=== PATIENT | male | born 1975 | race Caucasian/White ===

== ENCOUNTER 2021-12-26 18:34 | Emergency (ER) | payer OTHER ==
[2021-12-26 18:51] VITALS: TEMP 98
[2021-12-26 19:28] LABS: Basophils % (A) 0 %; Eosinophils # (A) 0.1 k/uL (0-0.7); Eosinophils % (A) 2 %; HCT 44.9 % (39.0-53.0); HGB 15.5 gm/dL (13.0-17.5); Lymphocytes % (A) 33 %; MCH 29.3 pg (25.0-35.0); MCHC 34.4 g/dL (31.0-37.0); MCV 85.2 fL (80.0-100.0); Mean Platelet Volume 8.6; Monocytes # (A) 0.4 k/uL (0-1.0); Monocytes % (A) 6 %; Neutrophils # (A) 3.3 k/uL (1.3-7.7); Neutrophils % (A) 54 %; Platelet Count 219 k/uL (150-450); RBC 5.27 m/uL (4.30-5.90); RDW 13.3 % (11.5-15.5); WBC 6.1 k/uL (3.8-10.6)
--- NOTE | 2021-12-26 19:40 | XR ---
EXAMINATION TYPE: XR chest 1V portable DATE OF EXAM: 12/26/2021 COMPARISON: NONE HISTORY: Chest pain TECHNIQUE: Single view FINDINGS: Heart is normal. Lungs are clear. Diaphragm is normal. Bony thorax is intact. IMPRESSION: Normal chest
[2021-12-26 19:44] LABS: Partial Thromboplastin Time 25.7 sec (22.0-30.0); Prothrombin Time 10.6 sec (9.0-12.0)
[2021-12-26 19:48] LABS: ALT 31 U/L (4-49); AST 28 U/L (17-59); African American GFR (CKD) >90 (>60 ml/min/1.73 sqM); Albumin 4.6 g/dL (3.5-5.0); Alkaline Phosphatase 77 U/L (38-126); Anion Gap 10 mmol/L; Blood Urea Nitrogen 23 mg/dL (9-20); Carbon Dioxide 20 mmol/L (22-30); Chloride 110 mmol/L (98-107); Glucose 88 mg/dL (74-99); Lipase 123 U/L (23-300); Magnesium 2.2 mg/dL (1.6-2.3); Non-African American GFR(CKD) >90 (>60 ml/min/1.73 sqM); Potassium 4.2 mmol/L (3.5-5.1); Sodium 140 mmol/L (137-145); Total Bilirubin 0.5 mg/dL (0.2-1.3); Total Protein 7.4 g/dL (6.3-8.2)
[2021-12-26] MEDS ORDERED: BISMUTH SUBSALICYLATE 4,192 MG/240 ML BOTTLE PO STA (19:58)
[2021-12-26 20:07] LABS: Appearance,Urine Clear (Clear); Bilirubin,Urine Negative (Negative); Blood,Urine Negative (Negative); Calcium Oxalate Crystals,Urine Rare /hpf; Color,Urine Yellow; Glucose,Urine (UA) Negative (Negative); Ketones,Urine Negative (Negative); Leukocyte Esterase,Urine Moderate (Negative); Mucus,Urine Many /hpf; Nitrite,Urine Negative (Negative); PH, Urine 5.5 (5.0-8.0); Protein,Urine 1+ (Negative); RBC,Urine 5 /hpf (0-5); WBC,Urine 22 /hpf (0-5)
--- NOTE | 2021-12-26 20:08 | ED ---
Chest Pain HPI - General Chief Complaint: Chest Pain Stated Complaint: Chest pain Time Seen by Provider: 12/26/21 19:00 Source: patient Mode of arrival: ambulatory Limitations: no limitations - History of Present Illness Initial Comments: Patient complains of chest pain. Pain is in the middle of the chest. It doesn't radiate anywhere. Nothing makes it better or worse. He has no exertional chest pain or pressure or tightness. He has no shortness of breath. He has no palpitations. He has no nausea or vomiting. He has no diaphoresis. - Related Data Allergies Allergy/AdvReac Type Severity Reaction Status Date / Time amoxicillin AdvReac Rash/Hives Verified 12/26/21 18:51 Penicillins AdvReac Rash/Hives Verified 12/26/21 18:51 Review of Systems ROS Statement: Those systems with pertinent positive or pertinent negative responses have been documented in the HPI. ROS Other: All systems not noted in ROS Statement are negative. EKG Findings - EKG Comments: EKG Findings:: Twelve-lead EKG shows ventricular rate 68 bpm, normal WI interval, normal QRS complexes, no ST elevation or depression, interpreted by me as normal sinus rhythm. Past Medical History Past Medical History: GERD/Reflux, Hypertension Past Surgical History: No Surgical Hx Reported Past Psychological History: ADD/ADHD, Anxiety Smoking Status: Never smoker Past Alcohol Use History: Occasional Past Drug Use History: None Reported General Exam Limitations: no limitations General appearance: alert, in no apparent distress Head exam: Present: atraumatic, normocephalic, normal inspection Eye exam: Present: normal appearance, PERRL, EOMI. Absent: scleral icterus, conjunctival injection, periorbital swelling ENT exam: Present: normal exam, mucous membranes moist Neck exam: Present: normal inspection. Absent: tenderness, meningismus, lymphadenopathy Respiratory exam: Present: normal lung sounds bilaterally. Absent: respiratory distress, wheezes, rales, rhonchi, stridor Cardiovascular Exam: Present: regular rate, normal rhythm, normal heart sounds. Absent: systolic murmur, diastolic murmur, rubs, gallop, clicks GI/Abdominal exam: Present: soft, normal bowel sounds. Absent: distended, tenderness, guarding, rebound, rigid Extremities exam: Present: normal inspection, full ROM, normal capillary refill. Absent: tenderness, pedal edema, joint swelling, calf tenderness Back exam: Present: normal inspection Neurological exam: Present: alert, oriented X3, CN II-XII intact Psychiatric exam: Present: normal affect, normal mood Skin exam: Present: warm, dry, intact, normal color. Absent: rash Course Vital Signs 12/26/21 12/26/21 18:43 19:34 Temperature 98.0 F Pulse Rate 78 70 Respiratory 18 13 Rate Blood Pressure 151/101 159/109 O2 Sat by Pulse 98 94 L Oximetry Chest Pain [facility] Patient presents with chest pain. Exam is unremarkable. Workup is completely normal. He had a stress test done within the last was negative. He has no exertional symptoms. He tolerates oral intake. Vital signs are within acceptable limits. He is stable for discharge. Disposition Clinical Impression: Chest pain Disposition: HOME SELF-CARE Condition: Good Instructions (If sedation given, give patient instructions): Chest Pain (ED) Is patient prescribed a controlled substance at d/c from ED?: No Referrals: Naif Barba III, MD [Primary Care Provider] - 1-2 days Yandel Rosenbaum MD [STAFF PHYSICIAN] - 1-2 days
[2021-12-26 20:21] VITALS: BP 151/105; PULSE 77; RESP 16
== END 2021-12-26 20:21 | disposition home or self-care (01) ==
LOC: EC 18:34
DX: R07.9 Chest pain, unspecified (principal); I10 Essential (primary) hypertension; K21.9 Gastro-esophageal reflux disease without esophagitis; F41.9 Anxiety disorder, unspecified
CPT/HCPCS: 36415; 71045; 80053; 81001; 83690; 83735; 83880; 84484; 85025; 85610; 85730; 93005; 99285

== ENCOUNTER → 2022-01-12 | Day surgery (SDC) | payer OTHER ==
[2022-01-10 16:05] VITALS: BMI 34.4
[~2022-01-12] MED LIST: KETAMINE 10 MG/ML 20 ML VIAL ONE; LIDOCAINE 1% (10MG/ML) FOR IV START INTRADERMA PRN; LIDOCAINE 2% INJ 20 MG/ML (2 ML VIAL) ONE; MIDAZOLAM 2 MG/2 ML VIAL ONE; PROPOFOL 10 MG/ML 20 ML VIAL IV ONE; fentaNYL (PF) 50 MCG/ML 2 ML AMP ONE
[2022-01-12 07:52] VITALS: RESP 16; TEMP 98.6
[2022-01-12] MEDS: LACTATED RINGERS 1,000 ML IV SCH ×2 (08:04→08:54)
--- NOTE | 2022-01-12 09:18 | P.PCN ---
Date of Procedure: 01/12/22 Procedure(s) Performed: Brief history: Patient is a pleasant 46-year-old white male scheduled for an elective upper endoscopy as well as colonoscopy as a part of evaluation of epigastric pain, abdominal bloating and chronic diarrhea for the last several years duration. He does have long-standing history of GERD and has been on Protonix 40 mg twice daily. Procedure performed: Esophagogastroduodenoscopy with biopsy Colonoscopy with biopsy and snare polypectomy Preoperative diagnosis: Long-standing history of GERD Change in bowel habits and chronic diarrhea Anesthesia: MAC Procedure: After informed consent was obtained from the patient was brought into the endoscopy unit and IV sedation was administered by anesthesia under continuous monitoring. Initially upper endoscopy was done. The Olympus GF 160 video endoscope was inserted inserted into the mouth and esophagus intubated without any difficulty and was gradually advanced into the stomach and duodenum and carefully examined. The bulb and second part of the duodenum appeared normal. Biopsies were done from the duodenum to rule out celiac disease. The scope was then withdrawn into the stomach adequately insufflated with air and upon careful examination the antrum had mild gastritis and biopsies were done from this area. The body, cardia and fundus appeared normal. The scope was then withdrawn into the esophagus. The GE junction was located at 40 cm to the incisors. It appeared regular with no erythema erosions or ulcerations. Rest of the esophagus appeared normal. Patient tolerated the procedure well. At this time the patient continued to remain sedation. Initial digital rectal examination was normal. Olympus CF 160 video colonoscope was then inserted into the rectum and gradually advanced to the cecum without any difficulty. Careful examination was performed as the scope was gradually being withdrawn. The prep was excellent. The cecum, appeared normal. Ascending colon there was a 1.5 cm broad-based polyp that was removed by snare polypectomy. Rest of the ascending colon, transverse colon, descending colon, sigmoid colon and rectum appeared normal. Random biopsies were done from ascending and descending colon to rule out colonoscopy/collagenous colitis. Retroflexion was performed in the rectum and no lesions were noted. Patient tolerated the procedure well. Impression: 1. Upper endoscopy revealed mild antral gastritis but no evidence of esophagitis or peptic ulcer disease 2. Colonoscopy revealed a 1.5 cm broad-based ascending colon polyp status post polypectomy. Recommendations: Findings of this examination were discussed with the patient as well as his family. He was advised to follow with the biopsy results. If the biopsy reveals adenoma he can have a repeat colonoscopy in 3 years. He will continue with Protonix 40 mg twice daily and follow antireflux measures.
[2022-01-12 09:56] VITALS: BP 114/74; PULSE 82
== END ==
LOC: ORWHC2ENDO 07:34
PROVIDERS: ATTEND Internal Medicine Gastroenterology
DX: K29.50 Unspecified chronic gastritis without bleeding (principal); K63.5 Polyp of colon; K52.9 Noninfective gastroenteritis and colitis, unspecified; K21.9 Gastro-esophageal reflux disease without esophagitis; Z79.899 Other long term (current) drug therapy; I10 Essential (primary) hypertension; F90.9 Attention-deficit hyperactivity disorder, unspecified type; F41.9 Anxiety disorder, unspecified; Z87.11 Personal history of peptic ulcer disease; Z88.0 Allergy status to penicillin
CPT/HCPCS: 88305; 45380; 45385; 43239; J2250; J3010; J2704; J2001

== ENCOUNTER → 2022-01-19 | Outpatient (CLI) | payer OTHER ==
--- NOTE | 2022-01-22 09:46 | US ---
EXAMINATION TYPE: US abdomen comp/pelvis limited DATE OF EXAM: 01/19/2022 COMPARISON: NONE CLINICAL HISTORY: R10.31 RLQP N20.0 CALCULUS OF KIDNEY. Hx kidney stones, fatty liver. Right lower qu adrant pain. EXAM MEASUREMENTS: Liver Length: 18.0 cm Gallbladder Wall: 0.4 cm CBD: 0.5 cm Spleen: 13.7 cm Right Kidney: 12.6 x 6.6 x 6.7 cm Left Kidney: 11.9 x 5.7 x 7.2 cm Post Void Residual: 31.93 mL Pancreas: Limited due to gas. Liver: Appears coarse and enlarged with increased echogenicity. Gallbladder: Wall appears thickened: 0.4 cm. CBD: Appears wnl Spleen: Appears slightly enlarged versus upper limits. Right Kidney: Appearance of mild hydronephrosis medially, scanned post-void as well. -2 hyperechoic foci seen. Larger focus measures: 0.7 x 0.6 x 0.5 cm. Right kidney measures upper limits versus minimally enlarged. Left Kidney: Appearance of minimal hydronephrosis medially, scanned post-void as well. -2 hyperechoic foci seen. Larger focus measures: 0.6 x 0.6 x 0.4 cm. Upper IVC: Appears wnl Abd Aorta: Proximal aorta appears ectatic. Limited, distal segment and iliacs were obscured. Bladder: Appears anechoic. Bilateral Jets Seen Yes Normal Post Void Residual (normal less than 50ml) Yes IMPRESSION: 1. Left renal calculi without hydronephrosis. 2. Mild right hydronephrosis
== END | disposition home or self-care (01) ==
LOC: RADUSWWP 08:18
PROVIDERS: ATTEND Family Medicine
DX: N13.2 Hydronephrosis with renal and ureteral calculous obstruction (principal)
CPT/HCPCS: 76700; 76857

== ENCOUNTER → 2022-07-18 | Outpatient (CLI) | payer BC ==
[2022-07-18 14:31] LABS: HCT 45.7 % (39.6-50.0); MCH 28.1 pg (27.0-32.0); MCHC 32.8 g/dL (32.0-37.0); MCV 85.7 fL (80.0-97.0); NRBC Per 100 WBC 0 /100 WBCS (0.0-0.0); Platelet Count 216 X 10*3/uL (140-440); RBC 5.33 X 10*6/uL (4.40-5.60); WBC 5.93 X 10*3/uL (4.50-10.00)
[2022-07-18 14:56] LABS: ALT 36 U/L (10-49); AST 18 U/L (14-35); African American GFR (CKD) 103.6 (60.0-200.0); BUN/Creat Ratio 16.14 Ratio (12.00-20.00); Blood Urea Nitrogen 16.3 mg/dL (9.0-27.0); Calcium 9.4 mg/dL (8.7-10.3); Chloride 103 mmol/L (96-109); Chol/HDL Ratio 4.99 Ratio; Glucose 107 mg/dL (70-110); LDL Cholesterol,Calculated 125.3 mg/dL (0.0-131.0); Non-African American GFR(CKD) 89.4 (60.0-200.0); Potassium 4.5 mmol/L (3.5-5.5); Sodium 142 mmol/L (135-145)
== END | disposition home or self-care (01) ==
LOC: LABWHC1 09:32
PROVIDERS: ATTEND Internal Medicine Cardiovascular Disease
DX: E78.2 Mixed hyperlipidemia (principal)
CPT/HCPCS: 36415; 80048; 80061; 84443; 84450; 84460; 85027

== ENCOUNTER 2024-12-06 10:36 | Emergency (ER) | payer BC ==
[2024-12-06 11:05] VITALS: TEMP 98.4
--- NOTE | 2024-12-06 11:46 | ED ---
Nausea/Vomiting/Diarrhea HPI - General Chief complaint: Nausea/Vomiting/Diarrhea Stated complaint: N/V/D Time Seen by Provider: 12/06/24 10:50 Source: patient, RN notes reviewed Mode of arrival: ambulatory Limitations: no limitations - History of Present Illness Initial comments: This is a 49-year-old male presenting to emergency department with complaints of nausea, vomiting, diarrhea, and abdominal pain described as a burning sensation since Saturday. Patient states that he felt well yesterday however today pain is worsened located to the left lower part of his abdomen that radiates up into the left upper quadrant of his abdomen. He denies chest pain, difficulty breathing, heart palpitations, dizziness, lightheadedness, hematochezia, melena, urinary changes. Patient states that he believes he may have had bad [place] food on that prompted his symptoms. Denies previous surgical abdominal history however states that he has a bad gallbladder and this needs to be removed. Denies cardiac history or history of diverticulitis. - Related Data Home Medications Medication Instructions Recorded Confirmed Pantoprazole [Protonix] 40 mg PO DAILY 01/10/22 01/12/22 amLODIPine BESYLATE/BENAZEPRIL 1 cap PO DAILY 01/10/22 01/12/22 [amLODIPine BESYLATE/BENAZEPRIL 5-20 mg] Previous Rx's Medication Instructions Recorded Ketorolac [Toradol] 10 mg PO Q8HR #15 tab 12/06/24 Ondansetron Odt [Zofran Odt] 4 mg PO Q8HR PRN #10 tab 12/06/24 Allergies Allergy/AdvReac Type Severity Reaction Status Date / Time amoxicillin AdvReac Rash/Hives Verified 12/06/24 11:05 Penicillins AdvReac Rash/Hives Verified 12/06/24 11:05 Review of Systems ROS Statement: Those systems with pertinent positive or pertinent negative responses have been documented in the HPI. ROS Other: All systems not noted in ROS Statement are negative. Past Medical History Past Medical History: GERD/Reflux, Hypertension Additional Past Medical History / Comment(s): Symptoms of diarrhea, stomach issues. States may have stomach ulcers. History of Any Multi-Drug Resistant Organisms: None Reported Past Surgical History: No Surgical Hx Reported Additional Past Surgical History / Comment(s): [place] teeth, EGD Past Anesthesia/Blood Transfusion Reactions: No Reported Reaction Past Psychological History: ADD/ADHD, Anxiety Smoking Status: Former smoker Past Alcohol Use History: Occasional Past Drug Use History: None Reported - Past Family History Mother Family Medical History: No Reported History General Exam - General Exam Comments Initial Comments: Visual Physical Exam Vital signs reviewed General: Well-appearing, nontoxic, no acute distress. Head: Normocephalic, atraumatic Eyes: PERRLA, EOMI ENT: Airway patent Chest: Nonlabored breathing Skin: No visual rash, normal skin tone Neuro: Alert and oriented 3 Musculoskeletal: No gross abnormalities Limitations: no limitations General appearance: alert, in no apparent distress Neck exam: Present: normal inspection. Absent: tenderness, meningismus, lymphadenopathy Respiratory exam: Present: normal lung sounds bilaterally. Absent: respiratory distress, wheezes, rales, rhonchi, stridor Cardiovascular Exam: Present: regular rate, normal rhythm, normal heart sounds. Absent: systolic murmur, diastolic murmur, rubs, gallop, clicks GI/Abdominal exam: Present: soft, tenderness (diffuse), normal bowel sounds. Absent: distended, guarding, rebound, rigid Extremities exam: Present: normal inspection, full ROM, normal capillary refill. Absent: tenderness, pedal edema, joint swelling, calf tenderness Back exam: Present: normal inspection. Absent: CVA tenderness (R), CVA tenderness (L) Skin exam: Present: warm, dry, intact, normal color. Absent: rash Course Vital Signs 12/06/24 12/06/24 12/06/24 11:03 13:25 14:48 Temperature 98.4 F Pulse Rate 64 69 59 L Respiratory 20 18 18 Rate Blood Pressure 103/68 118/75 98/64 O2 Sat by Pulse 99 98 99 Oximetry Medical Decision Making - Medical Decision Making Was pt. sent in by a medical professional or institution (, PA, VE TEACHER, urgent care, hospital, or skilled nursing...) When possible be specific @ -No Did you speak to anyone other than the patient for history (EMS, parent, family, police, friend...)? What history was obtained from this source @ -No Did you review nursing and triage notes (agree or disagree)? Why? @ -I reviewed and agree with nursing and triage notes Were old charts reviewed (outside hosp., previous admission, EMS record, old EKG, old radiological studies, urgent care reports/EKG's, skilled nursing records)? Report findings @ -No old charts were reviewed Differential Diagnosis (chest pain, altered mental status, abdominal pain women, abdominal pain men, vaginal bleeding, weakness, fever, dyspnea, syncope, hea dache, dizziness, GI bleed, back pain, seizure, CVA, palpatations, mental health, musculoskeletal)? @ -Differential Abdominal Pain Men: Appendicitis, cholecystitis, diverticulosis, ischemic bowel, pancreatitis, hepatitis, UTI, gastroenteritis, AAA, incarcerated hernia, bowel obstruction, constipation, inflammatory bowel, hepatitis, peptic ulcer disease, splenic infarction, perforated viscus, testicular torsion, this is not meant to be an all-inclusive list EKG interpreted by me (3pts min.). @ -Completed at 1204 sinus bradycardia with a ventricular rate of 59, MI interval 209, QRS 93, QT 414, QTc 414. X-rays interpreted by me (1pt min.). @ -None done CT interpreted by me (1pt min.). @ -CT of the abdomen and pelvis with IV contrast reveals a right hydronephrosis secondary to a 9 mm calculus in the proximal right ureter with no left lower process U/S interpreted by me (1pt. min.). @ -None done What testing was considered but not performed or refused? (CT, X-rays, U/S, labs)? Why? @ -None What meds were considered but not given or refused? Why? @ -None Did you discuss the management of the patient with other professionals (professionals i.e. , PA, VE TEACHER, lab, RT, psych nurse, secondary social studies teacher, circuit court clerk, teacher, collections officer, manager case management)? Give summary @ -No Was smoking cessation discussed for >3mins.? @ -No Was critical care preformed (if so, how long)? @ -No Were there social determinants of health that impacted care today? How? (Homelessness, low income, unemployed, alcoholism, drug addiction, transportation, low edu. Level, literacy, decrease access to med. care, halfway, rehab)? @ -No Was there de-escalation of care discussed even if they declined (Discuss DNR or withdrawal of care, Hospice)? DNR status @ -No What co-morbidities impacted this encounter? (DM, HTN, Smoking, COPD, CAD, Cancer, CVA, ARF, Chemo, Hep., AIDS, mental health diagnosis, sleep apnea, morbid obesity)? @ -None Was patient admitted / discharged? Hospital course, mention meds given and route, prescriptions, significant lab abnormalities, going to OR and other pertinent info. @ -Discharge. 49-year-old male presents emergency room with complaints of abdominal pain and burning. Patient is noted to have mildly reproducible pain on examination of the abdomen with equal bowel sounds heard through all quadrants. Patient provided with IV fluids and Zofran was offered morphine however was declined. Labs reveal reactive leukocytosis 11.3 likely secondary to emesis and diarrhea. CMP is unremarkable including troponin. Urinalysis reveals no signs of infection. CT imaging of the abdomen pelvis with IV contrast reveals a hydronephrosis secondary to a 9 mm calculus in the proximal right ureter with no evidence of a left lower process of the abdomen. Reevaluat ion after medication patient states that he is feeling well. He is provided with dose of Protonix and Toradol with symptoms likely secondary to gastroenteritis this patient is not having pain of the right lower quadrant. Patient states that he has a known history of a right-sided kidney stone and follows with a urologist out of [facility]. Patient's pain has been well-controlled and he is stable for discharge. Return parameters have been discussed. Case discussed with my attending Dr. Alvarez Undiagnosed new problem with uncertain prognosis? @ -No Drug Therapy requiring intensive monitoring for toxicity (Heparin, Nitro, Insulin, Cardizem)? @ -No Were any procedures done? @ -No Diagnosis/symptom? @ -Gastroenteritis, acute nausea and vomiting, acute diarrhea, right nephrolithiasis Acute, or Chronic, or Acute on Chronic? @ -Acute Uncomplicated (without systemic symptoms) or Complicated (systemic symptoms)? @ -Uncomplicated Side effects of treatment? @ -No Exacerbation, Progression, or Severe Exacerbation? @ -No Poses a threat to life or bodily function? How? (Chest pain, [place], [place], pneumonia, PE, COPD, DKA, ARF, appy, cholecystitis, CVA, Diverticulitis, Homicidal, Suicidal, threat to staff... and all critical care pts) @ -No - Lab Data Result diagrams: 12/06/24 12:15 12/06/24 12:15 Lab Results 06/15/25 06/15/25 06/15/25 Range/Units 12:15 12:15 12:15 WBC 11.33 H (4.50-10.00) 10*3/uL RBC 5.71 H (4.40-5.60) 10*6/uL Hgb 16.2 (13.0-17.0) g/dL Hct 46.5 (39.6-50.0) % MCV 81.4 (80.0-97.0) fL MCH 28.4 (27.0-32.0) pg MCHC 34.8 (32.0-37.0) g/dL Plt Count 239 (140-440) 10*3/uL MPV 11.2 (9.5-12.2) fL Immature Gran % (Auto) 0.4 % Neutrophils % 78.2 % Lymphocytes % 12.4 % Monocytes % 5.2 % Eosinophils % 3.6 % Basophils % 0.2 % Immature Gran # 0.05 H (0.00-0.04) 10*3/uL Neutrophils # 8.86 H (1.80-7.70) 10*3/uL Lymphocytes # 1.40 (0.90-5.00) 10*3/uL Monocytes # 0.59 (0.20-1.00) 10*3/uL Eosinophils # 0.41 H (0.04-0.35) 10*3/uL Basophils # 0.02 (0.00-0.10) 10*3/uL Sodium 137 (137-145) mmol/L Potassium 3.6 (3.5-5.1) mmol/L Chloride 101 (98-107) mmol/L Carbon Dioxide 25 (22-30) mmol/L Anion Gap 11 mmol/L BUN 23 H (9-20) mg/dL Creatinine 1.02 (0.66-1.25) mg/dL Est GFR (CKD-EPI)AfAm >90 (>60 ml/min/1.73 sqM) Est GFR (CKD-EPI)NonAf 87 (>60 ml/min/1.73 sqM) Glucose 107 H (74-99) mg/dL Plasma Lactic Acid José Miguel (0.7-2.0) mmol/L Calcium 9.6 (8.4-10.2) mg/dL Total Bilirubin 0.7 (0.2-1.3) mg/dL AST 19 (17-59) U/L ALT 31 (4-49) U/L Alkaline Phosphatase 97 (38-126) U/L Troponin I <0.012 (0.000-0.034) ng/mL Total Protein 6.4 (6.3-8.2) g/dL Albumin 4.0 (3.5-5.0) g/dL Lipase 46 (23-300) U/L Urine Color Urine Appearance (Clear) Urine pH (5.0-8.0) Ur Specific Wever (1.001-1.035) Urine Protein (Negative) Urine Glucose (UA) (Negative) Urine Ketones (Negative) Urine Blood (Negative) Urine Nitrite (Negative) Urine Bilirubin (Negative) Urine Urobilinogen (<2.0) mg/dL Ur Leukocyte Esterase (Negative) Urine RBC (0-5) /hpf Urine WBC (0-5) /hpf Urine Mucus (None) /hpf 12/06/24 12/06/24 Range/Units 12:15 13:31 WBC (4.50-10.00) 10*3/uL RBC (4.40-5.60) 10*6/uL Hgb (13.0-17.0) g/dL Hct (39.6-50.0) % MCV (80.0-97.0) fL MCH (27.0-32.0) pg MCHC (32.0-37.0) g/dL Plt Count (140-440) 10*3/uL MPV (9.5-12.2) fL Immature Gran % (Auto) % Neutrophils % % Lymphocytes % % Monocytes % % Eosinophils % % Basophils % % Immature Gran # (0.00-0.04) 10*3/uL Neutrophils # (1.80-7.70) 10*3/uL Lymphocytes # (0.90-5.00) 10*3/uL Monocytes # (0.20-1.00) 10*3/uL Eosinophils # (0.04-0.35) 10*3/uL Basophils # (0.00-0.10) 10*3/uL Sodium (137-145) mmol/L Potassium (3.5-5.1) mmol/L Chloride (98-107) mmol/L Carbon Dioxide (22-30) mmol/L Anion Gap mmol/L BUN (9-20) mg/dL Creatinine (0.66-1.25) mg/dL Est GFR (CKD-EPI)AfAm (>60 ml/min/1.73 sqM) Est GFR (CKD-EPI)NonAf (>60 ml/min/1.73 sqM) Glucose (74-99) mg/dL Plasma Lactic Acid José Miguel 0.9 (0.7-2.0) mmol/L Calcium (8.4-10.2) mg/dL Total Bilirubin (0.2-1.3) mg/dL AST (17-59) U/L ALT (4-49) U/L Alkaline Phosphatase (38-126) U/L Troponin I (0.000-0.034) ng/mL Total Protein (6.3-8.2) g/dL Albumin (3.5-5.0) g/dL Lipase (23-300) U/L Urine Color Yellow Urine Appearance Clear (Clear) Urine pH 6.5 (5.0-8.0) Ur Specific Wever >1.050 H (1.001-1.035) Urine Protein Trace H (Negative) Urine Glucose (UA) Negative (Negative) Urine Ketones Trace H (Negative) Urine Blood Negative (Negative) Urine Nitrite Negative (Negative) Urine Bilirubin Negative (Negative) Urine Urobilinogen <2.0 (<2.0) mg/dL Ur Leukocyte Esterase Small H (Negative) Urine RBC 2 (0-5) /hpf Urine WBC 6 H (0-5) /hpf Urine Mucus Occasional H (None) /hpf Disposition Clinical Impression: Gastroenteritis, Nephrolithiasis Disposition: HOME SELF-CARE Condition: Good Instructions (If sedation given, give patient instructions): Gastroenteritis (ED) Additional Instructions: Please return to the Emergency Department if symptoms worsen or any other concerns. Please follow-up with urology for further evaluation of 9 mm sided kidney stone Prescriptions: Ketorolac [Toradol] 10 mg PO Q8HR #15 tab Ondansetron Odt [Zofran Odt] 4 mg PO Q8HR PRN #10 tab PRN Reason: Nausea Is patient prescribed a controlled substance at d/c from ED?: No Referrals: Lefty Ochoa MD [Primary Care Provider] - 1-2 days Time of Disposition: 14:03
[2024-12-06] MEDS: ONDANSETRON 4 MG/2 ML VIAL IVP STA (12:26)
[2024-12-06] MEDS: SODIUM CHLORIDE 0.9% 1,000 ML IV ONE (12:26)
[2024-12-06 12:40] LABS: Basophils # (A) 0.02 10*3/uL (0.00-0.10); Basophils % (A) 0.2 %; Eosinophils # (A) 0.41 10*3/uL (0.04-0.35); Eosinophils % (A) 3.6 %; HCT 46.5 % (39.6-50.0); HGB 16.2 g/dL (13.0-17.0); Lymphocytes % (A) 12.4 %; MCH 28.4 pg (27.0-32.0); MCHC 34.8 g/dL (32.0-37.0); MCV 81.4 fL (80.0-97.0); Mean Platelet Volume 11.2 fL (9.5-12.2); Monocytes # (A) 0.59 10*3/uL (0.20-1.00); Monocytes % (A) 5.2 %; Neutrophils # (A) 8.86 10*3/uL (1.80-7.70); Neutrophils % (A) 78.2 %; Platelet Count 239 10*3/uL (140-440); RBC 5.71 10*6/uL (4.40-5.60); RDW 13.5 % (11.5-14.5); WBC 11.33 10*3/uL (4.50-10.00)
[2024-12-06 12:53] LABS: ALT 31 U/L (4-49); AST 19 U/L (17-59); African American GFR (CKD) >90 (>60 ml/min/1.73 sqM); Alkaline Phosphatase 97 U/L (38-126); Anion Gap 11 mmol/L; Blood Urea Nitrogen 23 mg/dL (9-20); Calcium 9.6 mg/dL (8.4-10.2); Carbon Dioxide 25 mmol/L (22-30); Chloride 101 mmol/L (98-107); Glucose 107 mg/dL (74-99); Lipase 46 U/L (23-300); Non-African American GFR(CKD) 87 (>60 ml/min/1.73 sqM); Potassium 3.6 mmol/L (3.5-5.1); Sodium 137 mmol/L (137-145); Total Bilirubin 0.7 mg/dL (0.2-1.3); Total Protein 6.4 g/dL (6.3-8.2)
[2024-12-06] MEDS: MORPHINE SULFATE 4 MG/ML SYRINGE IVP STA (13:00)
[2024-12-06 13:27] VITALS: RESP 18
--- NOTE | 2024-12-06 13:27 | CT ---
EXAMINATION TYPE: CT abdomen pelvis w con DATE OF EXAM: 12/06/2024 1:06 PM COMPARISON: None CLINICAL INDICATION: Male, 49 years old with history of LLQ ab pain/burning, diarrhea; LLQ abdominal pain, burning and cramping. N/V/D. TECHNIQUE: Axial CT abdomen pelvis w con;Sagittal and coronal reformats were created on a separate w orkstation. Contrast used:100 ml mL of Isovue 300 with IV Contrast, (none if empty) Oral contrast used: without Oral Contrast (none if empty) CT DLP: 2015.2 mGycm, Automated exposure control for dose reduction was used. FINDINGS: LOWER CHEST: Unremarkable ABDOMEN LIVER: Unremarkable GALLBLADDER AND BILE DUCTS: Unremarkable. PANCREAS: Unremarkable. SPLEEN: Small splenule is present. ADRENAL GLANDS: Unremarkable. KIDNEYS AND URETERS: There is a 9 mm ureteral calculus in the proximal right ureter with mild hydrone phrosis. Additional nonobstructing renal calculi bilaterally measuring up to 4 mm. Simple appearing l eft renal cortical cyst on follow-up recommended. PELVIS BLADDER: No evidence for wall thickening or mass given limitations of exam. REPRODUCTIVE: Prostate is enlarged in size measuring 4.8 cm in transverse dimension. ABDOMEN & PELVIS STOMACH AND BOWEL: No evidence of bowel obstruction. The appendix is normal. 2 scattered diverticula. PERITONEUM/RETROPERITONEUM: No evidence of pneumoperitoneum or free fluid. Martha mesentery noted. VASCULATURE: No evidence of aortic aneurysm. MUSCULOSKELETAL: No acute osseous abnormalities LYMPH NODES: No gross evidence for lymphadenopathy. SOFT TISSUE/ABDOMINAL WALL: Bilateral fat-containing inguinal hernias. IMPRESSION: 1. Mild right hydronephrosis secondary obstructing 9 mm calculus in the proximal right ureter. 2. Additional bilateral nonobstructing renal calculi. 3. No left lower quadrant acute process to explain patient's left lower quadrant pain. 4. Simple appearing left renal cortical cysts, no follow-up recommended. 5. Few scattered colonic diverticula. 6. No obstructive uropathy or renal calculus. 7. Martha mesentery which is nonspecific could relate for sclerosing panniculitis. 8. Bilateral fat-containing inguinal hernias. 9. Prostatomegaly, correlate with serum PSA. [facility], , 12/06/2024 1:25 PM
[2024-12-06] MEDS: KETOROLAC 15 MG/ML 1 ML VIAL IVP STA (14:09)
[2024-12-06] MEDS: PANTOPRAZOLE 40 MG/10 ML VIAL IVP STA (14:09)
[2024-12-06 14:10] LABS: Appearance,Urine Clear (Clear); Bilirubin,Urine Negative (Negative); Blood,Urine Negative (Negative); Color,Urine Yellow; Glucose,Urine (UA) Negative (Negative); Ketones,Urine Trace (Negative); Leukocyte Esterase,Urine Small (Negative); Mucus,Urine Occasional /hpf; Nitrite,Urine Negative (Negative); PH, Urine 6.5 (5.0-8.0); Protein,Urine Trace (Negative); RBC,Urine 2 /hpf (0-5); Urobilinogen,Urine <2.0 mg/dL (<2.0); WBC,Urine 6 /hpf (0-5)
[2024-12-06 14:14] LABS: Specific Gravity,Urine >1.050 (1.001-1.035)
[2024-12-06] MEDS: ONDANSETRON 4 MG ODT STARTER PACK 2 TAB BTL PO STA (14:45)
[2024-12-06 14:49] VITALS: BP 98/64; PULSE 59
== END 2024-12-06 14:49 | disposition home or self-care (01) ==
LOC: EC 10:36
DX: K52.9 Noninfective gastroenteritis and colitis, unspecified (principal); N13.2 Hydronephrosis with renal and ureteral calculous obstruction; R00.1 Bradycardia, unspecified; Z88.0 Allergy status to penicillin; Z87.891 Personal history of nicotine dependence
CPT/HCPCS: 36415; 93005; 80053; 83605; 83690; 84484; 85025; 81001; 74177; 99284; 96374; 96375 ×2; 96361 ×2; J2405; J1885; S0119; Q9967; J2470